=== PATIENT | male | born 2000 | race Caucasian/White ===

== ENCOUNTER 2021-05-02 11:03 | Observation (INO) ==
[2021-05-02] MEDS ORDERED: SODIUM CHLORIDE 0.9% 1000ML 1,000 ML IV ONE (11:15)
[2021-05-02] MEDS ORDERED: ONDANSETRON INJ 2 MG/ML 2 ML VIAL IV STA (11:16)
[2021-05-02] MEDS ORDERED: KETOROLAC TROMETHAMINE 15 MG/ML VIAL IV ONE (11:16)
--- NOTE | 2021-05-02 11:23 | Emergency Department Note ---
Impression & Plan Appendicitis, Abdominal pain ED Provider Note NAME: GOOD SOLOMON AGE: 21 SEX: M : 2000 ARRIVES VIA: Walk-In INFORMANT: Patient ED PROVIDER(S): Mk Welch DO CHIEF COMPLAINT: abdominal pain HPI: Patient is a 21-year-old male who presents to the ER for right lower quadrant abdominal pain. This started within the past 24 hours. He admits to nausea but no vomiting. Pain is a 6 out of 10. Is worse with walking. He notes it radiates throughout his entire belly. Denies any dysuria urgency or frequency. No testicular swelling or pain. Denies any headache or change in vision. No chest pain or shortness of breath. No other exacerbating or dania tting factors. ROS: See above HPI for pertinent positives & negatives. A total of 10 systems reviewed and were otherwise negative. PAST MEDICAL HISTORY:See Below PAST SURGICAL HISTORY:See Below FAMILY HISTORY:See Below SOCIAL HISTORY:See Below HOME MEDICATIONS:See Below ALLERGIES:See Below VITALS:See Below PHYSICAL EXAMINATION: GENERAL: Sitting up in bed, alert, well appearing, well nourished, no distress, non-toxic EYE EXAM: normal conjunctiva. PERRL and EOM's grossly intact. OROPHARYNX: no exudate, no erythema, lips, buccal mucosa, and tongue normal and mucous membranes are moist NECK: supple, no nuchal rigidity, no adenopathy, non-tender LUNGS: Clear to auscultation. Normal chest wall mechanics HEART: no murmurs, S1 normal and S2 normal ABDOMEN: abdomen soft, tender palpation right lower quadrant, normo-active bowel sounds, no masses, no rebound or guarding. UPPER EXTREMITIES: upper extremities are grossly normal. LOWER EXTREMITIES: No pitting edema. NEURO EXAM: Normal sensorium, cranial nerves II-XII grossly intact, normal speech, no gross weakness of arms, no gross weakness of legs. MEDICAL DECISION MAKING: Patient is a 21-year-old who presents ER for right lower quadrant abdominal pain started in the past 24 hours. IV was established blood was obtained. Labs show leukocytosis of 15,000. No significant anemia. BMP along with LFTs bilirubin and lipase is unremarkable. Covid was ordered and pending. CT abdomen pelvis shows acute appendicitis. Patient was given IV cefoxitin. He was also given IV Toradol and fluids. Updated bedside. Discussed with Dr. Fong from general surgery who will admit the patient for further evaluation. Triage Nursing notes reviewed. Limited review of prior medical records performed Vital Signs: reviewed and remarkable for HTN Differential diagnosis: Differential diagnoses includes but is not limited to gastritis, peptic ulcer disease, GERD, gallbladder disease, pancreatitis, small bowel obstruction, acute coronary syndrome, pericarditis, ischemic bowel, irritable bowel disease, irritable bowel syndrome, appendicitis, diverticulitis, malignancy, hernia, urinary tract infection, torsion, perforation, trauma, infectious. ER treatment provided: See below Diagnostics interpreted by me: ECG: none Cardiac Monitoring: An order was placed for continuous cardiac monitoring. The monitor shows a rate of 72 with sinus rhythm. Laboratory studies: As stated above and show below. Imaging studies: CT of the pelvis shows acute appendicitis Consultation(s): Discussed with Dr. Mullins for further evaluation Procedures: none Critical Care: None Past Med/Surg History Social History Smoking Status: Never smoker Tobacco Type: Smokeless Tobacco (Dip or Chew) Preferred Language: [place]er Feels Safe at Home: Yes Allergies Allergies Allergy/AdvReac Type Severity Reaction Status Date / Time No Known Allergies Allergy Unverified 08/27/19 09:51 Home Meds Home Medications Medication Instructions Recorded Confirmed No Known Home Medications 05/02/21 05/02/21 Results & Data (ED) Vital Signs Vital Signs - 24 hr 05/02/21 11:06 05/02/21 13:04 05/02/21 13:37 Temperature 36.8 C Temperature Source Temporal Artery Scan Pulse Rate 77 77 Pulse Rate [Apical] 71 Respiratory Rate 18 16 17 Respiratory Effort / Characteristics Non-Labored Blood Pressure 142/80 H Blood Pressure [Left Arm] 118/66 Blood Pressure Mean 100 Blood Pressure Mean [Left Arm] 83 Pulse Oximetry 97 98 98 Oxygen Delivery Method Room Air Room Air Room Air Sepsis Recent Fever Within 48 Hours No Sepsis New/Unexplained Change in Mental Status No Sepsis Action Taken by Nursing No Action Required Laboratory Data Result diagrams: 05/02/21 11:37 05/02/21 11:37 Lab Results 05/02/21 05/02/21 05/02/21 Range/Units 11:37 11:37 13:34 WBC 15.08 H (4.8-10.8) K/uL RBC 4.96 (4.7-6.1) M/uL Hgb 15.3 (14.0-18.0) g/dL Hct 43.3 (42-52) % MCV 87.3 (80-100) fL MCH 30.8 (25-34) pg MCHC 35.3 (32-36) g/dL RDW Std Deviation 40.1 (36.4-46.3) fL RDW Coeff of Nikko 12.5 (11.5-14.5) % Plt Count 366 (130-400) K/uL MPV 9.5 (7.4-10.4) fL Immature Gran % (Auto) 0.1 % Neut % (Auto) 81.4 % Lymph % (Auto) 11.0 % [place] % (Auto) 6.3 % Eos % (Auto) 0.9 % Baso % (Auto) 0.3 % Neut # (Auto) 12.28 H (1.4-6.5) K/uL Lymph # (Auto) 1.66 (1.2-3.4) K/uL [place] # (Auto) 0.95 H (0.11-0.59) K/uL Eos # (Auto) 0.13 (0-0.5) K/uL Baso # (Auto) 0.04 (0-0.2) K/uL Immature Gran # (Auto) 0.02 (0.00-0.02) K/uL Sodium 139 (136-145) mmol/L Potassium 4.1 (3.5-5.1) mmol/L Chloride 104 (98-107) mmol/L Carbon Dioxide 29 (21-32) mmol/L Anion Gap 6.0 (3-11) BUN 15 (7-18) mg/dl Creatinine 1.00 (0.6-1.4) mg/dl Est Cr Clr Drug Dosing 99.9 ml/min Est GFR ( Amer) 122.4 ml/min Est GFR (Non-Af Amer) 105.6 ml/min BUN/Creatinine Ratio 14.8 (10-20) Glucose 97 (70-99) mg/dl Calcium 9.2 (8.5-10.1) mg/dl Total Bilirubin 0.7 (0.2-1) mg/dl AST 10 L (15-37) U/L ALT 19 (12-78) U/L Alkaline Phosphatase 101 (45-117) U/L Total Protein 8.6 H (6.4-8.2) gm/dl Albumin 4.2 (3.4-5.0) gm/dl Globulin 4.4 H (2.5-4.0) gm/dl Albumin/Globulin Ratio 1.0 (0.9-2) Lipase 97 (73-393) U/L COVID-19 Eval Order Covid19 at [facility] Administered Medications Discontinued Medications Sodium Chloride (Nss 1000ml) 1,000 mls @ 999 mls/hr IV .Q1H1M ONE Stop: 05/02/21 12:15 Last Infusion: 05/02/21 13:19 Dose: 0 mls/hr Documented by: [id number] Admin: 05/02/21 11:44 Dose: 999 mls/hr Documented by: [id number] Cefoxitin Sodium (Mefoxin) 2,000 mg in 60 mls @ 100 mls/hr IV NOW STA Stop: 05/02/21 13:41 Last Admin: 05/02/21 13:29 Dose: 100 mls/hr Documented by: [id number] Ioversol (Optiray 320 100ml) 92 ml IV ONCE ONE Stop: 05/02/21 12:42 Last Admin: 05/02/21 12:41 Dose: 92 ml Documented by: [id number] Ketorolac Tromethamine (Ketorolac Tromethamine 15 Mg/Ml Vial) 10 mg IV NOW ONE Stop: 05/02/21 11:17 Last Admin: 05/02/21 11:44 Dose: 10 mg Documented by: [id number] Ondansetron HCl (Ondansetron Inj 2 Mg/Ml 2 Ml Vial) 4 mg IV NOW STA Stop: 05/02/21 11:17 Last Admin: 05/02/21 11:44 Dose: 4 mg Documented by: [id number] Imaging Data Radiologist's Impression: Abdomen/Pelvis CT 05/02/21 11:15 CT abd pelvis IV con only CLINICAL HISTORY: rlq abd pain COMPARISON STUDY: No previous studies for comparison. CT DOSE: 280.76 mGy.cm TECHNIQUE: Standard CT of the Abdomen and Pelvis was performed with IV contrast. A dose lowering technique was utilized adhering to the principles of ALARA. Contrast Volume: Optiray 320, 92 ml. The patient did not receive oral contrast. FINDINGS: Lung base: The lung bases are clear. Abdominal cavity: There is no evidence for abdominal mass, adenopathy or ascites. Liver: There is homogeneous attenuation of the liver parenchyma. There is no evidence for enhancing mass lesion. Spleen: There is homogeneous attenuation of the splenic parenchyma. There is no enhancing mass lesion. Pancreas: There is homogeneous attenuation of the pancreatic parenchyma. There is no evidence for mass lesion or peripancreatic fluid collection. Gall Bladder: The gallbladder is well distended with no evidence for intraluminal calculi, wall thickening or pericholecystic edema. Adrenal glands: The adrenal glands are normal in size and attenuation. There is no evidence for enhancing mass lesion. Kidneys: There is homogeneous attenuation of the renal parenchyma bilaterally. There is no evidence for renal calculus or hydronephrosis. There is no evidence for enhancing mass. Bowel: The stomach is distended with liquid and food stuff. The bowel loops are normally placed within the abdomen and pelvis without evidence for dilatation or obstruction. There is no evidence for mass lesion. There is dilatation of the appendix measuring 11 mm. There is enhancement of the wall with mild periappendiceal inflammatory change. The findings are characteristic of acute appendicitis. There is no perforation or abscess. There is no evidence for free air. Bladder: The bladder is within normal limits with no evidence for focal mass, calculus or diverticulum. : There is no evidence for pelvic mass or adenopathy. There is a very small amount of free fluid seen within the pelvis. Vasculature: There is no evidence for aneurysmal dilatation of the abdominal aorta. Osseous structures: There is no acute osseous pathology. IMPRESSION: 1. CT findings characteristic of acute appendicitis without evidence for perforation or abscess. Critical results were sent to the emergency Department. ACT 112: Negative or not required by law. Electronically signed by: Rashard Lu M.D. 05/02/2021 1:01 PM Discharge Plan Visit Data Chief Complaint: Abdominal Pain Stated Complaint: ABD PAIN ED Provider: kM Welch Discharge Problem: Appendicitis, Abdominal pain Forms Stand Alone Forms: [employer] Prescriptions Prescriptions: No Action No Known Home Medications RF: 0 Referrals Referrals: PCP,NO [Primary Care Provider] -
[2021-05-02 11:43] LABS: Basophils # (auto) 0.04 K/uL (0-0.2); Basophils % (auto) 0.3 %; Eosinophils # (auto) 0.13 K/uL (0-0.5); Eosinophils % (auto) 0.9 %; Hematocrit (blood only) 43.3 % (42-52); Hemoglobin 15.3 g/dL (14.0-18.0); Immature Granulocytes # (auto) 0.02 K/uL (0.00-0.02); Immature Granulocytes % (auto) 0.1 %; Lymphocytes # (auto) 1.66 K/uL (1.2-3.4); Mean Corpuscular Hemoglobin 30.8 pg (25-34); Mean Corpuscular Hgb Conc 35.3 g/dL (32-36); Mean Corpuscular Volume 87.3 fL (80-100); Mean Platelet Volume 9.5 fL (7.4-10.4); Monocytes # (auto) 0.95 K/uL (0.11-0.59); Monocytes % (auto) 6.3 %; Neutrophils # (auto) 12.28 K/uL (1.4-6.5); Neutrophils % (auto) 81.4 %; Platelet Count 366 K/uL (130-400); RDW Coefficient of Variation 12.5 % (11.5-14.5); RDW Standard Deviation 40.1 fL (36.4-46.3); Red Blood Count 4.96 M/uL (4.7-6.1); White Blood Count 15.08 K/uL (4.8-10.8)
[2021-05-02 11:59] LABS: Albumin Level 4.2 gm/dl (3.4-5.0); BUN Creatinine Ratio 14.8 (10-20); Calcium 9.2 mg/dl (8.5-10.1); Creatinine Clr Calc Pharmacy 99.9 ml/min; Est GFR (African American) 122.4 ml/min; Est GFR (Non-African American) 105.6 ml/min; Potassium 4.1 mmol/L (3.5-5.1)
[2021-05-02 12:02] LABS: Bilirubin,Total 0.7 mg/dl (0.2-1); Globulin 4.4 gm/dl (2.5-4.0); Total Protein 8.6 gm/dl (6.4-8.2)
[2021-05-02] MEDS ORDERED: OPTIRAY 320 100ml IV ONE (12:41)
--- NOTE | 2021-05-02 13:02 | CT Scan Report ---
CT abd pelvis IV con only CLINICAL HISTORY: rlq abd pain COMPARISON STUDY: No previous studies for comparison. CT DOSE: 280.76 mGy.cm TECHNIQUE: Standard CT of the Abdomen and Pelvis was performed with IV contrast. A dose lowering romana hnique was utilized adhering to the principles of ALARA. Contrast Volume: Optiray 320, 92 ml. The patient did not receive oral contrast. FINDINGS: Lung base: The lung bases are clear. Abdominal cavity: There is no evidence for abdominal mass, adenopathy or ascites. Liver: There is homogeneous attenuation of the liver parenchyma. There is no evidence for enhancing m ass lesion. Spleen: There is homogeneous attenuation of the splenic parenchyma. There is no enhancing mass lesion . Pancreas: There is homogeneous attenuation of the pancreatic parenchyma. There is no evidence for mas s lesion or peripancreatic fluid collection. Gall Bladder: The gallbladder is well distended with no evidence for intraluminal calculi, wall thick ening or pericholecystic edema. Adrenal glands: The adrenal glands are normal in size and attenuation. There is no evidence for enhan cing mass lesion. Kidneys: There is homogeneous attenuation of the renal parenchyma bilaterally. There is no evidence f or renal calculus or hydronephrosis. There is no evidence for enhancing mass. Bowel: The stomach is distended with liquid and food stuff. The bowel loops are normally placed withi n the abdomen and pelvis without evidence for dilatation or obstruction. There is no evidence for mas s lesion. There is dilatation of the appendix measuring 11 mm. There is enhancement of the wall with mild peria ppendiceal inflammatory change. The findings are characteristic of acute appendicitis. There is no pe rforation or abscess. There is no evidence for free air. Bladder: The bladder is within normal limits with no evidence for focal mass, calculus or diverticulu m. : There is no evidence for pelvic mass or adenopathy. There is a very small amount of free fluid se en within the pelvis. Vasculature: There is no evidence for aneurysmal dilatation of the abdominal aorta. Osseous structures: There is no acute osseous pathology. IMPRESSION: 1. CT findings characteristic of acute appendicitis without evidence for perforation or abscess. Critical results were sent to the emergency Department. ACT 112: Negative or not required by law. Electronically signed by: Rashard Lu M.D. 05/02/2021 1:01 PM
[2021-05-02] MEDS ORDERED: cefOXitin 2,000 MG/60 ML BAG IV STA (13:06)
--- NOTE | 2021-05-02 13:56 | Anesthesiology Consultation ---
Date of Service May 02, 2021 Assessment & Plan (1) Encounter for pre-operative examination: Chart Review Chart Review: Acceptable Risk for Surgery and Patient NOT seen in Pre Admission Testing Consults Requested none History Surgery Operation Date: 05/02/21 14:30 Proposed Procedures p Laparoscopic Appendectomy - Elena Mullins MD Height/Weight Height: 5 ft 5 in Weight: 70.3 kg Allergies Allergy/AdvReac Type Severity Reaction Status Date / Time No Known Allergies Allergy Unverified 08/27/19 09:51 Medications Home Medications Medication Instructions Recorded Confirmed Last Taken No Known Home Medications 05/02/21 05/02/21 Unknown Past Medical History No significant PMH Past Surgical History No significant PSH Social History Smoking Status: Never smoker Physical Exam Vital Signs Last Vital Signs Temp 36.8 C 05/02/21 11:06 Pulse 77 05/02/21 13:37 Resp 17 05/02/21 13:37 BP 118/66 05/02/21 13:04 Pulse Ox 98 05/02/21 13:37 Testing Laboratory Results 05/02/21 11:37 05/02/21 11:37
--- NOTE | 2021-05-02 13:58 | Surgery Consultation ---
Date of Consultation May 02, 2021 Assessment & Plan (1) Appendicitis: see below pt is a 21 yaer -old male who presents to Er with acute abdominal pain, IMP: acute appendicitis, Plan, I recommend to do laparoscopic appendectomy, possible open, D/W benefits, risks and alternatives of the surgery, the risks - infection, bleeding, injury other organs, abscess, incisional hernia, pt understood, he agrees with the surgery, he signed informed consent, I answered all questions, History of Present Illness Reason for Consultation: acute appendicitis Requesting Physician: Mk Yarbrough History of Present Illness CHIEF COMPLAINT: abdominal pain HPI: Patient is a 21-year-old male who presents ER for right lower quadrant abdominal pain. This started within the past 24 hours. He admits to nausea but no vomiting. Pain is a 6 out of 10. Is worse with walking. He notes it radiates throughout his entire belly. Denies any dysuria urgency or frequency. No testicular swelling or pain. Denies any headache or change in vision. No chest pain or shortness of breath. No other exacerbating or remitting factors. I ( Elena Mullins MD FACS) got a call for consult acute appendicitis, I reviewed pt's H/P, labs, CT scan with pt, pt is still have RLQ pain, with nausea and vomiting,otherwise pt is healthy, Allergies Allergy/AdvReac Type Severity Reaction Status Date / Time No Known Allergies Allergy Unverified 08/27/19 09:51 Home Medications Medication Instructions Recorded Confirmed Type No Known Home Medications 05/02/21 05/02/21 History Patient History Social History Smoking Status: Never smoker Tobacco Type: Smokeless Tobacco (Dip or Chew) Preferred Language: Yi Feels Safe at Home: Yes Review of Systems Constitutional: as per Subjective / HPI Eyes: as per Subjective / HPI Respiratory: as per Subjective / HPI Cardiovascular: as per Subjective / HPI Gastrointestinal: as per Subjective / HPI Genitourinary: + as per Subjective / HPI Musculoskeletal: as per Subjective / HPI Neurologic: as per Subjective / HPI Psychiatric: as per Subjective / HPI Endocrine: as per Subjective / HPI Hematologic / Lymphatic: as per Subjective / HPI Physical Exam Constitutional: WD/WN, vitals as above Eyes: PERRL, conjunctivae normal, anicteric sclerae Neck: trachea midline, no thyromegaly Respiratory: normal respiratory effort, lungs clear to auscultation Cardiovascular: RRR, no murmur, no edema Gastrointestinal (Abdomen): soft, tenderness at RLQ with rebound pain, no distend, BS + Musculoskeletal: no cyanosis or clubbing, extremities motor strength 5/5 Neurologic: patellar DTR's 2+ bilat, sensation intact Psychiatric: A+Ox3, euthymic affect Results & Data ([facility]) Vital Signs (Past 12 Hours) Vital Signs Temp Pulse Pulse Resp BP BP Pulse Ox 05/02/21 13:37 77 17 98 05/02/21 13:04 71 16 118/66 98 05/02/21 11:06 36.8 C 77 18 142/80 H 97 Laboratory Results Abnormal lab results 05/02/21 05/02/21 Range/Units 11:37 11:37 WBC 15.08 H (4.8-10.8) K/uL Neut # (Auto) 12.28 H (1.4-6.5) K/uL [place] # (Auto) 0.95 H (0.11-0.59) K/uL AST 10 L (15-37) U/L Total Protein 8.6 H (6.4-8.2) gm/dl Globulin 4.4 H (2.5-4.0) gm/dl Diagnostic Findings CT abd pelvis IV con only CLINICAL HISTORY: rlq abd pain COMPARISON STUDY: No previous studies for comparison. CT DOSE: 280.76 mGy.cm TECHNIQUE: Standard CT of the Abdomen and Pelvis was performed with IV contrast. A dose lowering technique was utilized adhering to the principles of ALARA. Contrast Volume: Optiray 320, 92 ml. The patient did not receive oral contrast. FINDINGS: Lung base: The lung bases are clear. Abdominal cavity: There is no evidence for abdominal mass, adenopathy or ascites. Liver: There is homogeneous attenuation of the liver parenchyma. There is no evidence for enhancing mass lesion. Spleen: There is homogeneous attenuation of the splenic parenchyma. There is no enhancing mass lesion. Pancreas: There is homogeneous attenuation of the pancreatic parenchyma. There is no evidence for mass lesion or peripancreatic fluid collection. Gall Bladder: The gallbladder is well distended with no evidence for intraluminal calculi, wall thickening or pericholecystic edema. Adrenal glands: The adrenal glands are normal in size and attenuation. There is no evidence for enhancing mass lesion. Kidneys: There is homogeneous attenuation of the renal parenchyma bilaterally. There is no evidence for renal calculus or hydronephrosis. There is no evidence for enhancing mass. Bowel: The stomach is distended with liquid and food stuff. The bowel loops are normally placed within the abdomen and pelvis without evidence for dilatation or obstruction. There is no evidence for mass lesion. There is dilatation of the appendix measuring 11 mm. There is enhancement of the wall with mild periappendiceal inflammatory change. The findings are characteristic of acute appendicitis. There is no perforation or abscess. There is no evidence for free air. Bladder: The bladder is within normal limits with no evidence for focal mass, calculus or diverticulum. : There is no evidence for pelvic mass or adenopathy. There is a very small amount of free fluid seen within the pelvis. Vasculature: There is no evidence for aneurysmal dilatation of the abdominal aorta. Osseous structures: There is no acute osseous pathology. IMPRESSION: 1. CT findings characteristic of acute appendicitis without evidence for perforation or abscess. Critical results were sent to the emergency Department. (1) Appendicitis Acute appendicitis type: other Appendicitis type: acute appendicitis Qualified Code(s): K35.890 - Other acute appendicitis without perforation or gangrene
[2021-05-02] MEDS ORDERED: GLYCOPYRROLATE 0.2 MG/ML VIAL ONE (14:01)
[2021-05-02] MEDS ORDERED: PROPOFOL IV EMULSION 10 MG/ML 20 ML VIAL IV ONE (14:01)
[2021-05-02] MEDS ORDERED: NEOSTIGMINE METHYLSULFATE 1 MG/ML 10ML VIAL ONE ×2 (14:01→16:01)
[2021-05-02] MEDS ORDERED: DEXAMETHASONE SOD INJ 4 MG/ML VIAL ONE (14:01)
[2021-05-02] MEDS ORDERED: ONDANSETRON INJ 2 MG/ML 2 ML VIAL ONE (14:01)
[2021-05-02] MEDS ORDERED: LIDOCAINE 2% 2 ML VIAL/AMP(20MG/ML) INFIL ONE (14:01)
--- NOTE | 2021-05-02 14:03 | History & Physical Bridge Note ---
Date of Service May 02, 2021 History & Physical Bridge Note I have examined the patient, reviewed the History & Physical and in the interval since the performance of the History & Physical I have noted the following changes of clinical significance: no changes noted
[2021-05-02] MEDS ORDERED: LIDOCAINE 1% LOCAL 20 ML VIAL ONE (14:05)
[2021-05-02] MEDS ORDERED: BACITRACIN OINT 15 GM TUBE ONE (14:05)
[2021-05-02] MEDS ORDERED: BUPIVACAINE 0.5 % 5 MG/1 ML MPF 30ML VIAL ONE (14:05)
[2021-05-02] MEDS ORDERED: MIDAZOLAM HCL 1 MG/ML 2ML VIAL ONE (14:06)
[2021-05-02] MEDS ORDERED: fentaNYL citrate 100 MCG/2 ML VIAL ONE ×2 (14:06→16:47)
[2021-05-02] MEDS ORDERED: ROCURONIUM BROMIDE 10 MG/ML 5 ML VIAL IV ONE (14:07)
[2021-05-02] MEDS ORDERED: SUCCINYLCHOLINE CHLORIDE 20 MG/ML 10 ML VIAL IV ONE (14:11)
[2021-05-02] MEDS ORDERED: MoRPHine SULFATE 4 MG/ML 1 ML CARP\\VIAL ONE (14:57)
[2021-05-02] MEDS ORDERED: MoRPHine SULFATE 4 MG/ML 1 ML CARP\\VIAL IV STA (15:00)
[2021-05-02] MEDS ORDERED: SUGAMMADEX SODIUM 200 MG/2 ML VIAL IV ONE (16:02)
--- NOTE | 2021-05-02 16:17 | Post Operative Brief Note ---
Immediate Post Op Note v1 Date of Surgery May 02, 2021 Pre & Post Diagnosis Operation Date: 05/02/21 14:30 Pre-Op Diagnosis: acute Appendicitis Post-Op Diagnosis: acute Appendicitis I identified the patient and participated in the time-out.: Yes Procedure Operation Date: 05/02/21 14:30 Actual Procedures p Laparoscopic Appendectomy(Not Applicable) - Elena Mullins MD Surgeon Elena Mullins MD Entry Level Sales Representative neurosurgical physician assistant Estimated Blood Loss 10 Findings Consistent with Post-Op Diagnosis Fluids 800ml Specimens appendix Anesthesia Type General Complications none Disposition Accompanied Patient To Recovery: Yes
[2021-05-02] MEDS ORDERED: ONDANSETRON INJ 2 MG/ML 2 ML VIAL IV PRN ×2 (16:35→16:48)
[2021-05-02] MEDS: fentaNYL citrate 100 MCG/2 ML VIAL IV PRN ×2 (16:47→16:52)
[2021-05-02] MEDS ORDERED: ePHEDrine sulfate 50 MG/ML AMP IV PRN (16:48)
[2021-05-02] MEDS ORDERED: HYDROmorphone INJ 1 MG/ML SYRINGE IV PRN (16:48)
[2021-05-02] MEDS ORDERED: ATROPINE SULFATE 0.1 MG/ML 10ML SYR IV PRN (16:48)
[2021-05-02] MEDS ORDERED: PROMETHAZINE HCL 12.5 MG in SODIUM CHLORIDE 0.9% 50 ML IV PRN (16:48)
--- NOTE | 2021-05-02 16:51 | Anesthesiology Progress Note ---
Date of Service May 02, 2021 Anesthesia Post Procedure Vital Signs Vital Signs: Temp Pulse Pulse Resp BP BP BP 05/02/21 16:50 94 H 16 133/76 05/02/21 16:40 94 H 14 139/79 05/02/21 16:32 36.9 C 102 H 14 138/70 05/02/21 15:00 87 17 127/71 05/02/21 13:37 77 17 05/02/21 13:04 71 16 118/66 05/02/21 11:06 36.8 C 77 18 142/80 H Pulse Ox 05/02/21 16:50 100 05/02/21 16:40 100 05/02/21 16:32 100 05/02/21 15:00 98 05/02/21 13:37 98 05/02/21 13:04 98 05/02/21 11:06 97 Pain Intensity Abdomen: Pain Intensity: 6 Transfer of Care Handoff Completed per policy Notes Mental Status: alert / awake / arousable and participated in evaluation Patient Amnestic to Procedure: Yes Nausea / Vomiting: adequately controlled Pain: adequately controlled Airway Patency, RR, SpO2: stable & adequate BP & HR: stable & adequate Hydration State: stable & adequate Anesthetic Complications: no major complications apparent and Pt Satisfied with anesthetic care
[2021-05-02] MEDS ORDERED: HYDROmorphone INJ 0.5 MG/0.5 ML SYR IV PRN (17:47)
[2021-05-02] MEDS ORDERED: oxyCODONE/ACETAMINOPHEN 5mg/325mg TAB PO PRN (17:47)
[2021-05-02] MEDS: LACTATED RINGER'S 1,000 ML IV SCH (18:04)
--- NOTE | 2021-05-02 21:31 | Operative Report (OR) ---
DATE OF PROCEDURE: 05/02/2021. PREOPERATIVE DIAGNOSIS: Acute appendicitis. POSTOPERATIVE DIAGNOSIS: Acute appendicitis. OPERATION: Laparoscopic appendectomy. SURGEON: Elena Mullins MD. ANESTHESIA: General. ESTIMATED BLOOD LOSS: About 10 mL. FINDINGS: Acute appendicitis. COMPLICATIONS: None. INDICATIONS FOR THE PROCEDURE: This is a 21-year-old gentleman who presented with acute abdominal pa in to the ED. Patient had a CT scan diagnosis of acute appendicitis. I recommended to do laparoscopi c appendectomy, possible open. I did talk to the patient about the benefit, risk, alternate procedur e. I indicated the risks may include, but not limited to, such as bleeding, infection, injury to oth er organs, abscess, incisional hernia, bowel obstruction. The patient understands. He signed inform ed consent and I answered all questions. DETAILS OF PROCEDURE: After we identified the patient and verified the procedure, we brought the pat ient to the OR, put the patient in the supine position on the OR table. The patient received SCD on bilateral legs to prevent DVT. Also, patient received 2 grams cefoxitin IV for prophylactic antibiot ic. The patient received general anesthesia without difficulty. Abdomen was prepped and draped in r outine sterile fashion. After timeout, I injected the local anesthesia by using 1% lidocaine mixed wi th 0.5% Marcaine just above the umbilicus. I then made a small incision just above the umbilicus, op ened fascia, opened peritoneum. Under direct vision, put a Dominga trocar in, connected to CO2 to cre ate pneumoperitoneum, flow rate at 6 liters per minute, pressure not more than 14 mmHg. Once we get a nice pneumoperitoneum, we put a camera in, looked around the abdomen, it shows normal finding on th e small bowel and large bowel and at this moment, we put another two 5 mm trocars on the left lower q uadrant area, then we mobilized the cecum area and found the patient had significantly enlarged with inflammation appendix, confirmed diagnosis of acute appendicitis. Then, we used the Harmonic to take down the appendiceal, rechecked, no active bleeding. Then, I used a 45 mm Endo-AUGUSTO stapler for mas section on the base of appendix, rechecked the staple line intact. No active bleeding, no leak. The n, we removed appendix through the catch bag. Then, we reinserted the Dominga trocar in, connected to CO2 to create pneumoperitoneum, again looked a round the abdomen, no active bleeding, no leak from staple line. Then, we removed all trocars under direct vision. No active bleeding from the trocar site. Pneumoperitoneum was released, then I close d umbilicus incision fascial layer by using 0 Vicryl lkized-md-ucaid x2, closed subcutaneous layer by using 2-0 Vicryl interruptedly, closed skin by using 4-0 Vicryl continuous running, closed another t wo 5 mm trocar site of skin only by using 4-0 Vicryl. Then, we put the dressing on. The patient ten erated the procedure well. All instrument, needle and sponge counts were correct x2 at the end of case. The patient was transferred to recovery room in stable condition. The specimen was sent to pathology. After the procedure, I did talk to the patient and the patient's family member about the OR finding and the procedure we did, they understand. Job ID: [id number]
[2021-05-03 02:17] LABS: Appearance Urine Clear (Clear); Bilirubin Urine Negative (Negative); Blood Urine Negative (Negative); Color Urine Yellow; Glucose Urine UA Negative (Negative); Ketones Urine Negative (Negative); Leukocyte Esterase Urine Negative (Negative); Nitrite Urine Negative (Negative); Protein Urine Negative (Negative); Specific Gravity Urine 1.031 (1.000-1.030); Urobilinogen Urine Negative (Negative); pH Urine 7.5 (4.5-7.5)
[2021-05-03] MEDS: LACTATED RINGER'S 1,000 ML IV SCH (06:19)
[2021-05-03 08:17] LABS: Basophils # (auto) 0.02 K/uL (0-0.2); Basophils % (auto) 0.2 %; Eosinophils # (auto) 0.01 K/uL (0-0.5); Eosinophils % (auto) 0.1 %; Hematocrit (blood only) 37.3 % (42-52); Hemoglobin 13.1 g/dL (14.0-18.0); Immature Granulocytes # (auto) 0.04 K/uL (0.00-0.02); Immature Granulocytes % (auto) 0.3 %; Lymphocytes # (auto) 1.43 K/uL (1.2-3.4); Mean Corpuscular Hgb Conc 35.1 g/dL (32-36); Mean Corpuscular Volume 88.2 fL (80-100); Mean Platelet Volume 9.2 fL (7.4-10.4); Monocytes % (auto) 7.7 %; Neutrophils # (auto) 10.47 K/uL (1.4-6.5); Neutrophils % (auto) 80.7 %; Platelet Count 288 K/uL (130-400); RDW Coefficient of Variation 12.5 % (11.5-14.5); RDW Standard Deviation 40.2 fL (36.4-46.3); Red Blood Count 4.23 M/uL (4.7-6.1); White Blood Count 12.97 K/uL (4.8-10.8)
--- NOTE | 2021-05-03 08:27 | Surgery Progress Note ---
Date of Service May 03, 2021 Assessment & Plan (1) Appendicitis: Plan: see below Plan: pt is a 21 yaer -old male who presents to Er with acute abdominal pain, IMP: acute appendicitis, Plan, I recommend to do laparoscopic appendectomy, possible open, D/W benefits, risks and alternatives of the surgery, the risks - infection, bleeding, injury other organs, abscess, incisional hernia, pt understood, he agrees with the surgery, he signed informed consent, I answered all questions, 05/03/2021 8:25AM F/U S/P lap appy, POD 1 pt is doing better, tolerated clear diet, pt wants to go home today, the post-op care instruction was given. F/U 2 weeks, Admission and Anticipated Discharge Date Admission Date: May 02, 2021 Subjective F/U S/P lap appy, for acute appendicitis, POD 1 pt is doing better, less abdominal pain, no nausea, no vomiting, no fever, tolerated clear diet, Review of Systems Constitutional: as per Subjective / HPI Eyes: as per Subjective / HPI Respiratory: as per Subjective / HPI Cardiovascular: as per Subjective / HPI Gastrointestinal: as per Subjective / HPI Genitourinary: + as per Subjective / HPI Musculoskeletal: as per Subjective / HPI Neurologic: as per Subjective / HPI Psychiatric: as per Subjective / HPI Endocrine: as per Subjective / HPI Hematologic / Lymphatic: as per Subjective / HPI Physical Exam Constitutional: WD/WN, vitals as above Eyes: PERRL, conjunctivae normal, anicteric sclerae Neck: trachea midline, no thyromegaly Respiratory: normal respiratory effort, lungs clear to auscultation Cardiovascular: RRR, no murmur, no edema Gastrointestinal (Abdomen): soft, mild tenderness at incision sites, no rebound pain, no distend, BS + Musculoskeletal: no cyanosis or clubbing, extremities motor strength 5/5 Neurologic: patellar DTR's 2+ bilat, sensation intact Psychiatric: A+Ox3, euthymic affect Results & Data ([facility]) Vital Signs (Past 12 Hours) Vital Signs Temp Pulse Resp BP Pulse Ox 05/03/21 07:41 37 C 77 16 100/63 98 05/03/21 06:22 36.8 C 79 16 116/70 99 05/03/21 03:23 36.9 C 78 16 112/64 97 05/03/21 02:02 36.8 C 76 16 106/67 98 05/02/21 23:08 36.8 C 76 15 113/68 96 05/02/21 20:43 36.8 C 76 15 114/71 96 Laboratory Results Abnormal lab results 05/02/21 05/02/21 05/03/21 Range/Units 11:37 11:37 02:00 WBC 15.08 H (4.8-10.8) K/uL RBC (4.7-6.1) M/uL Hgb (14.0-18.0) g/dL Hct (42-52) % Neut # (Auto) 12.28 H (1.4-6.5) K/uL [place] # (Auto) 0.95 H (0.11-0.59) K/uL Immature Gran # (Auto) (0.00-0.02) K/uL AST 10 L (15-37) U/L Total Protein 8.6 H (6.4-8.2) gm/dl Globulin 4.4 H (2.5-4.0) gm/dl Ur Specific [place] 1.031 H (1.000-1.030) 05/03/21 Range/Units 08:02 WBC 12.97 H (4.8-10.8) K/uL RBC 4.23 L (4.7-6.1) M/uL Hgb 13.1 L (14.0-18.0) g/dL Hct 37.3 L (42-52) % Neut # (Auto) 10.47 H (1.4-6.5) K/uL [place] # (Auto) 1.00 H (0.11-0.59) K/uL Immature Gran # (Auto) 0.04 H (0.00-0.02) K/uL AST (15-37) U/L Total Protein (6.4-8.2) gm/dl Globulin (2.5-4.0) gm/dl Ur Specific [place] (1.000-1.030) (1) Appendicitis Acute appendicitis type: other Appendicitis type: acute appendicitis Qualified Code(s): K35.890 - Other acute appendicitis without perforation or gangrene
--- NOTE | 2021-05-04 00:03 | Discharge Summary (DS) ---
DATE OF ADMISSION: 05/02/2021. DATE OF DISCHARGE: 05/03/2021. ADMISSION DIAGNOSIS: Acute appendicitis. DISCHARGE DIAGNOSIS: Acute appendicitis. OPERATION: Laparoscopic appendectomy. SURGEON: Elena Mullins MD. DETAILS OF DISCHARGE SUMMARY: This is a 21-year-old gentleman who presented with acute abdominal anny n. The patient had a CT scan diagnosis of acute appendicitis. I took the patient to the OR, I did l aparoscopic appendectomy. The patient tolerated the procedure well. After the procedure, the patien t was transferred to recovery room and later on transferred to regular floor. The patient is doing f ine. He tolerated a clear diet. No nausea, no vomiting, no fever. PHYSICAL EXAMINATION: VITAL SIGNS: Temperature is 37, heart rate 77, respiratory rate 16, blood pressure 100/63, O2 satura tion 98% on room air. GENERAL: Alert, awake, oriented x3. HEENT: Normal limitation. NEUROLOGIC: Exam intact. NECK: No JVD. CHEST: Bilateral lung sounds clear. HEART: Normal S1 and S2. No murmur. ABDOMEN: Soft, nondistended, mild tenderness on the incision site. No rebound pain. All incisions intact and no redness. Bowel sounds positive. EXTREMITIES: No edema. The patient wanted to go home today. We gave the patient postop care instruction. Also, I gave the patient 5 days Cipro and Flagyl p.o. antibiotics and Percocet for pain. The patient understands. I answered all questions. Job ID: [id number]
== END 2021-05-03 11:10 | disposition home or self-care (01) ==
LOC: ED 11:03 → 3E 15:08 → OR 15:08
DX: K35.80 Unspecified acute appendicitis; R10.31 Right lower quadrant pain; Z20.822 Contact with and (suspected) exposure to COVID-19